=== PATIENT | male | born 1985 | race Caucasian/White ===

== ENCOUNTER 2018-09-22 12:34 | Emergency (ER) | payer SELFPAY ==
[~2018-09-22] VITALS: Ht 172.7 cm; Wt 79.4 kg
[2018-09-22 12:56] VITALS: BP 129/79
--- NOTE | 2018-09-22 14:07 | RAD ---
EXAM: Left knee, 3 views. HISTORY: Pain. COMPARISON: None. FINDINGS: 3 views of the left knee are obtained. There is no fracture, dislocation or subluxation. There is a moderate to large knee effusion. IMPRESSION: 1. No acute osseous finding. 2. Moderate to large left knee effusion. Electronically signed by: Emily Chirinos MD (09/22/2018 2:04 PM) [facility]
[2018-09-22] MEDS ORDERED: MELO7.5T5 PO (14:27)
--- NOTE | 2018-09-22 14:27 | PHYS DOC ---
Past Medical History Past Medical History: No Pertinent History (CRISTÓBAL BARBA APRN) Past Surgical History: No Surgical History (CRISTÓBAL BARBA APRN) Alcohol Use: None Drug Use: None (CRISTÓBAL BARBA APRN) Adult General Chief Complaint Chief Complaint: KNEE INJURY HPI HPI Patient is a 33 year old male who presents with left knee pain and swelling that has been increasing over the past few days. The patient states that he has injured that knee in the past but has not had a recent injury. He noticed that his knee was starting to swell. He is able to bear weight on that extremity. (CRISTÓBAL BARBA APRN) Review of Systems Review of Systems Constitutional: Denies fever or chills [] Eyes: Denies change in visual acuity, redness, or eye pain [] HENT: Denies nasal congestion or sore throat [] Respiratory: Denies cough or shortness of breath [] Cardiovascular: No additional information not addressed in HPI [] GI: Denies abdominal pain, nausea, vomiting, bloody stools or diarrhea [] : Denies dysuria or hematuria [] Musculoskeletal: See history of present illness Integument: Denies rash or skin lesions [] Neurologic: Denies headache, focal weakness or sensory changes [] Endocrine: Denies polyuria or polydipsia [] All other systems were reviewed and found to be within normal limits, except as documented in this note. (CRISTÓBAL BARBA APRN) Physical Exam Physical Exam Constitutional: Well developed, well nourished, no acute distress, non-toxic appearance. [] Cardiovascular:Heart rate regular rhythm, no murmur [] Lungs & Thorax: Bilateral breath sounds clear to auscultation [] Abdomen: Bowel sounds normal, soft, no tenderness, no masses, no pulsatile masses. [] Skin: Warm, dry, no erythema, no rash. [] Back: No tenderness, no CVA tenderness. [] Extremities: Tenderness to left knee with 2+ edema, no cyanosis, no clubbing, ROM intact, no erythema or calor noted to joint Neurologic: Alert and oriented X 3, normal motor function, normal sensory function, no focal deficits noted. [] Psychologic: Affect normal, judgement normal, mood normal. [] (CRISTÓBAL BARBA APRN) Current Patient Data Vital Signs Vital Signs Date Time Temp Pulse Resp B/P (MAP) Pulse Ox O2 Delivery O2 Flow Rate FiO2 09/22/18 12:56 97.9 74 18 129/79 (96) 99 Room Air 97.9 (DALE MARQUEZ MD) EKG EKG [] (CRISTÓBAL BARBA APRN) Radiology/Procedures Radiology/Procedures []PATIENT: TEDDY CANTU DACCOUNT: [id number]#: [id number] : 1985 LOCATION: ER AGE: 33 SEX: F EXAM STATUS: REG ER ORD. PHYSICIAN: CRISTÓBAL BARBA APRN REASON: increased pain x 2 weeks PROCEDURE: KNEE LEFT 3V EXAM: Left knee, 3 views. HISTORY: Pain. COMPARISON: None. FINDINGS: 3 views of the left knee are obtained. There is no fracture, dislocation or subluxation. There is a moderate to large knee effusion. IMPRESSION: 1. No acute osseous finding. 2. Moderate to large left knee effusion. Electronically signed by: Emily Bentley MD (09/22/2018 2:04 PM) [facility] DICTATED and SIGNED BY: EMILY BENTLEY MD DATE: 09/22/18 140 (CRISTÓBAL BARBA APRN) Course & Med Decision Making Course & Med Decision Making Pertinent Labs and Imaging studies reviewed. (See chart for details) []The patient was placed in a knee immobilizer for comfort. (CRISTÓBAL BARBA APRN) Course & Med Decision Making Staff Physician Addendum: I was working in the ER during the course of this patient's visit. I was available for consultation as needed, but I was not directly involved in the care of this patient. (DALE MARQUEZ MD) Dragon Disclaimer Dragon Disclaimer This electronic medical record was generated, in whole or in part, using a voice recognition dictation system. (CRISTÓBAL BARBA APRN) Departure Departure Impression: Primary Impression: Effusion, left knee Disposition: HOME, SELF-CARE Condition: STABLE Referrals: NO PCP (PCP) ANTONINO AGARWAL MD Patient Instructions: Knee Effusion Additional Instructions: Follow-up with your primary care provider or orthopedics for further evaluation and management of your knee effusion. Use the knee immobilizer for comfort. Take the medication as directed. Scripts Meloxicam (MOBIC) 7.5 Mg Tablet 1 TAB PO DAILY for knee pain, #30 TAB 1 Refill Prov: CRISTÓBAL BARBA APRN 09/22/18 CRISTÓBAL BARBA APRN Sep 22, 2018 14:27 DALE MARQUEZ MD Sep 23, 2018 23:58
== END 2018-09-22 14:52 | disposition home or self-care (01) ==
LOC: ER 12:34 → EDSEX 12:34 → ER 14:52
DX: M25.462 Effusion, left knee (principal)
CPT/HCPCS: 29505; 73562; 99284

== ENCOUNTER → 2019-02-10 | Outpatient (CLI) | payer BC ==
[~2019-02-10] MED LIST: MELO7.5T5 PO
--- NOTE | 2019-02-10 12:57 | KCIC ---
MR of the left knee HISTORY: Left knee injury a few months ago. Pain. Locking and stiffness. TECHNIQUE: Routine multiplanar sequences are obtained. FINDINGS: Signal identified within the posterior horn the medial meniscus, with areas of subtle extension through the inferior surface, compatible with a tear. No evidence of a lateral meniscal tear. The proximal anterior cruciate ligament is poorly visualized, especially at the femoral attachment. Chronic tear is suspected. Note that the distal ACL fibers are visualized and appear straight without horizontalization. Posterior cruciate ligament intact. Medial collateral ligament intact. Iliotibial band, fibular collateral ligament, biceps femoris tendon and popliteus tendon are intact. Extensor mechanism is intact. Small joint effusion. No acute articular cartilage defect. No bone destruction or acute fracture. No significant Gee's cyst. IMPRESSION: 1. Medial meniscal tear, appears mostly peripheral. 2. Poorly visualized proximal anterior cruciate ligament through its femoral attachment. Suspect chronic tear, correlate clinically for instability. Electronically signed by: Newton Beaulieu MD (02/10/2019 12:53 PM) [id number]
== END | disposition home or self-care (01) ==
LOC: KCIC MRI 08:13
PROVIDERS: ATTEND Family Medicine
DX: S83.242S Other tear of medial meniscus, current injury, left knee, sequela (principal); X58.XXXS Exposure to other specified factors, sequela
CPT/HCPCS: 73721